=== PATIENT | female | born 1940 | race Caucasian/White ===

== ENCOUNTER 2024-06-30 12:30 | Outpatient (RCR) | payer MEDICARE, SELFPAY ==
--- NOTE | 2024-05-05 14:14 | OPREHPOC ---
Outpatient Therapy Plan of Care This is a Multidisciplinary Plan of Care that may contain components documented by all disciplines (PT, OT, and ST.) PT Problem 1 PT Problem #1 Knowledge Deficit PT Goal 1 Goal / Goal Update 1. Patient will perform independent HEP Target Visit 4 PT Problem 2 PT Problem #2 Pain PT Goal 1 Goal / Goal Update 1. Decrease pain to 4/10 highest with all activities Target Visit 10 PT Problem 3 PT Problem #3 Impaired Range of Motion PT Goal 1 Goal / Goal Update 1. Right flexion to 125 degrees to allow for stairs 2. Right extension to 0 to normalize gait pattern Target Visit 10 PT Problem 4 PT Problem #4 Impaired Functional ADLs PT Goal 1 Goal / Goal Update 1. Patient able to do normal cooking activities 2. Patient able to navigate 1 flight of stairs reciprocally 3. Patient able to ambulate household distances without cane Target Visit 10 PT Problem 5 PT Problem #5 Impaired Gait PT Goal 1 Goal / Goal Update 1. Patient will ambulate at least 250 feet on the 2 minute walk test without device or pain Target Visit 10
--- NOTE | 2024-05-05 14:15 | PTOPEVAL1 ---
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 She had home health until last week and has been discharged. Highest pain recently 7-8/10 and lowest 3/10. Is using a cane during the day and a walker if she wakes up at night. No assistive device prior to surgery. Pt has stairs to the basement which she does not have to do currently, 2 to get in the house with a handrail. Pt has not been cleared to drive. Pt has been able to dress and bathe independently, has not yet tried to cook but she was able to do that prior. Has not tried any gardening due to feeling unstable. Returns to MD next week. Patient goal: do anything I want to do Reported Pain Level Pain Score 3: Self Report Assessment PT Clinical Summary The patient is presenting to skilled therapy s/p R TKA on 04/11/24. She presents with decreased range of motion and strength, as well as gait and balance impairments which are contributing to her current cane use and pain and difficulty with typical activities at home. She will highly benefit from therapy to address impairments in order to safely return to prior level of function. Plan of Care Interventions Electrical Stimulation,Gait Training,Hot Pack/Cold Pack,Manual Therapy,Neuro Re-education,Patient/ Caregiver Education,Therapeutic Activities, Therapeutic Exercise PT Services Indicated Yes Treatment Frequency and 2-3 times a week for 10 visits Duration These treatments will address the objective and functional deficits as defined above. The patient will be advanced safely and appropriately in order for the patient to progress towards his/her prior level of function. Additional exercises will be introduced and as well as a comprehensive home exercise program upon discharge, if needed, ?to ensure carryover of functional gains achieved in the clinic. This treatment plan has been reviewed and agreement upon by the patient.
--- NOTE | 2024-06-01 17:44 | OPREHPOC ---
Outpatient Therapy Plan of Care This is a Multidisciplinary Plan of Care that may contain components documented by all disciplines (PT, OT, and ST.) PT Problem 1 PT Problem #1 Knowledge Deficit PT Goal 1 Goal / Goal Update 1. Patient will perform independent HEP Target Visit 4 Progress Met PT Problem 2 PT Problem #2 Pain PT Goal 1 Goal / Goal Update 1. Decrease pain to 4/10 highest with all activities Target Visit 10 Progress Met PT Problem 3 PT Problem #3 Impaired Range of Motion PT Goal 1 Goal / Goal Update 1. Right flexion to 125 degrees to allow for stairs 2. Right extension to 0 to normalize gait pattern Achieved ROM passively but pain elicited at 115 on Target Visit 10 Progress Partially Met PT Problem 4 PT Problem #4 Impaired Functional ADLs PT Goal 1 Goal / Goal Update 1. Patient able to do normal cooking activities 2. Patient able to navigate 1 flight of stairs reciprocally 3. Patient able to ambulate household distances without cane Continues to be dependent on cane and struggling with cane reciprocation Target Visit 18 Progress Partially Met PT Goal 2 Goal / Goal Update Improve jessica hip abduction strength to 4+/5 to improve gait and functional stabilization of pelvis and core Target Visit 18 PT Problem 5 PT Problem #5 Impaired Gait PT Goal 1 Goal / Goal Update 1. Patient will ambulate at least 250 feet on the 2 minute walk test without device or pain Target Visit 18 Progress Not Met
--- NOTE | 2024-06-01 17:44 | PTOPPROG ---
Assessment and note entered by Peter Staley, PT Evaluation Information Assessment Status Progress Diagnosis z96.651 ICD-10 Condition Codes (PT) M25.561,Z47.1 Subjective Information Reports that she was independent prior to surgery and wants to get back to that again. Overall she feels she has made a lot of progress but still is dependent on cane and is using it even in the house. She would like to be able to ride a stationary bike. Continues to have soreness when working into deep functional flexion and feels unsteady without use of a cane and at times even with it. Was instructed by MD that he would like her to continue therapy. Assessment PT Clinical Summary Patient has made progress with knee ROM and strength. She has achieved 125 degrees of knee flexion but has discomfort working into this range . She continues to be heavily dependent on use of cane and demonstrates Trendelenburg gait pattern with trunk leaning bilaterally. Weakness is noted in jessica hips contributing to gait and balance deficits. Will continue to benefit from skilled therapy to address stabilization deficits, continue knee flexion ability and comfort, and improve gait cycle. Plan of Care Interventions Electrical Stimulation,Gait Training,Hot Pack/Cold Pack,Manual Therapy,Neuro Re-education,Patient/ Caregiver Education,Therapeutic Activities, Therapeutic Exercise PT Services Indicated Yes Treatment Frequency and 2x/week for 8 visits Duration These treatments will address the objective and functional deficits as defined above. The patient will be advanced safely and appropriately in order for the patient to progress towards his/her prior level of function. Additional exercises will be introduced and as well as a comprehensive home exercise program upon discharge, if needed, ?to ensure carryover of functional gains achieved in the clinic. This treatment plan has been reviewed and agreement upon by the patient.
--- NOTE | 2024-06-30 13:22 | PTOPDC ---
Assessment and note entered by Anna Simon, PT Discharge Report Assessment Status Discharge Diagnosis z96.651 ICD-10 Condition Codes (PT) Pain in right knee M25.561,Aftercare following joint replacement surgery Z47.1 Subjective Information knee is better; been doing more activity- walking and go out more; use cane when doing more walking or knee is more sore; Reported Pain Level Pain Score Self Report Additional Pain Score Comments pain range in the past week 0-2/10; sore and tight in knee increase pain; walking more decreased pain: rest, tylenol PRN no longer taking pain pill at night for sleeping, past 5 nights without it problems with sleeping on her side- can only tolerate about 10-15 minutes; education on use of pillow between knees and ankles for support; Assessment PT Clinical Summary Marta has received a total of 18 PT sessions. Compared to the last progress report: pain range now of 0-2/10; LE functional scale self rating from 60 to 14% limitation in activity level; 2 minute walking test distance from 315 to 450'; is ambulating without assistive device and good gait pattern; reports using the cane PRN for distances; on stairs, use of alternating step pattern: ascending without hand rail and descending with 1 hand railing; ROM of R knee: active in sitting 0-125', with stretch to 130' and pain increase to 2/10. Education completed for HEP. The goals were achieved. Discharge PT services. She is to continue with her HEP and increase activity as tolerated. Plan of Care PT Services Indicated No
== END 2024-06-30 13:58 | disposition home or self-care (01) ==
LOC: ANHPT 12:30
DX: Z47.1 Aftercare following joint replacement surgery (principal); Z96.651 Presence of right artificial knee joint
CPT/HCPCS: 97016; 97110; 97116; 97140; 97161; 97530

== ENCOUNTER 2025-05-04 13:30 | Outpatient (RCR) | payer MEDICARE, SELFPAY ==
--- NOTE | 2025-03-15 14:58 | PTOPEVAL1 ---
Assessment and note entered by Kim Hinson, PT Evaluation Information Assessment Status Evaluation Diagnosis M17.12 ICD-10 Condition Codes (PT) Pain in left knee M25.562 Onset chronic arthritis Subjective Information L knee pain that was slightly relieved by steroid injection which lasted only a month. Pt is also very concerned about her balance, L knee only hurts when she makes certain movements henry standing up from prolonged sitting. Feels like the bone is out of place. Also hurt when bending down Reported Pain Level Pain Score 5: Self Report Assessment PT Clinical Summary Pt presents to therapy with c/o pain to L knee, reports had R TKR in the previous year. Pt demos antalgic gait pattern, muscle weakness and compensatory patterns for hamstrings, glute med and hip flexor tightness which impact ADLs, noted 60% disability on LEFS, balance deficits, postural and gait impairments with 40/56 on the FRANKLIN BALANCE TEST. She reports that previous x-rays revealed bone on bone on B knees L > R and may need TKR, wants to participate in pre-op therapy to improve balance and stability to reduce risk for falls and improve flexibility for better outcome post surgery. Plan of Care Interventions Check Out for Orthotic/Prosthetic,Electrical Stimulation,Gait Training,Hot Pack/Cold Pack,Neuro Re-education,Patient/Caregiver Education, Therapeutic Activities,Therapeutic Exercise, Ultrasound PT Services Indicated Yes Treatment Frequency and 2x/wk x 10 visits Duration These treatments will address the objective and functional deficits as defined above. The patient will be advanced safely and appropriately in order for the patient to progress towards his/her prior level of function. Additional exercises will be introduced and as well as a comprehensive home exercise program upon discharge, if needed, ?to ensure carryover of functional gains achieved in the clinic. This treatment plan has been reviewed and agreement upon by the patient.
--- NOTE | 2025-03-15 14:58 | OPREHPOC ---
Outpatient Therapy Plan of Care This is a Multidisciplinary Plan of Care that may contain components documented by all disciplines (PT, OT, and ST.) PT Problem 1 PT Problem #1 Knowledge Deficit PT Goal 1 Goal / Goal Update Pt. will demo good understanding of diagnosis and prognosis, HEPs. Target Visit 8 PT Problem 2 PT Problem #2 Pain PT Goal 1 Goal / Goal Update Pt will report 1-2/10 level of pain at worst and when walking longer distances. Target Visit 10 PT Problem 3 PT Problem #3 Impaired Balance PT Goal 1 Goal / Goal Update Pt will demo a score of 45/56 or more on FRANKLIN BALANCE TEST to reduce risk for falls. Pt will demo single leg standing for 10 seconds each LE with minimal postural sway indicating improved stability. Target Visit 8 PT Problem 4 PT Problem #4 Impaired Strength PT Goal 1 Goal / Goal Update Pt will perform 5xSTS within 15 seconds or less with minimal BUE support indicating improved strength and balance. Pt will demo 4/5 or more muscle strength to all tested muscles of BLE hip and knee Target Visit 10
--- NOTE | 2025-03-29 13:39 | PCPTNOTE ---
Pt no call, no Showed her appointment today
--- NOTE | 2025-04-20 14:13 | PCPTNOTE ---
Cancelled d/t schedule conflict per front office. AKS
--- NOTE | 2025-05-04 14:15 | OPREHPOC ---
Outpatient Therapy Plan of Care This is a Multidisciplinary Plan of Care that may contain components documented by all disciplines (PT, OT, and ST.) PT Problem 1 PT Problem #1 Knowledge Deficit PT Goal 1 Goal / Goal Update Pt. will demo good understanding of diagnosis and prognosis, HEPs. 05-04-25 d/c goal met Target Visit 8 Progress Met PT Problem 2 PT Problem #2 Pain PT Goal 1 Goal / Goal Update Pt will report 1-2/10 level of pain at worst and when walking longer distances. 05-04-25 d/c goal not met; 5/10 at worst Target Visit 10 Progress Not Met PT Problem 3 PT Problem #3 Impaired Balance PT Goal 1 Goal / Goal Update Pt will demo a score of 45/56 or more on FRANKLIN BALANCE TEST to reduce risk for falls. Pt will demo single leg standing for 10 seconds each LE with minimal postural sway indicating improved stability. 05-04-25 d/c goals met Target Visit 8 Progress Met PT Problem 4 PT Problem #4 Impaired Strength PT Goal 1 Goal / Goal Update Pt will perform 5xSTS within 15 seconds or less with minimal BUE support indicating improved strength and balance. Pt will demo 4/5 or more muscle strength to all tested muscles of BLE hip and knee 05-04-25 d/c goal 2 met; #1 is 19 seconds Target Visit 10 Progress Partially Met
--- NOTE | 2025-05-04 14:15 | PTOPDC ---
Assessment and note entered by Anna iSmon, PT Assessment Status Discharge Diagnosis M17.12 ICD-10 Condition Codes (PT) Pain in left knee M25.562 Onset chronic arthritis Subjective Information leg is stronger; the cortisone shot and exercises have helped the knee pain; have TKR scheduled for July; have been doing the exercises and will continue to do them until surgery; agree to discharge therapy. Reported Pain Level Pain Score Self Report Additional Pain Score Comments pain range range in the past week 0-5/10; pain increase after sitting 20 minutes and then go to stand up; ease pain with sitting, resting, meloxicam; better since the knee injection. Assessment PT Clinical Summary Erin has received 9 PT sessions. She has improved in all areas and with today's assessment: pain rating from 0-5/10; self assessment with LE functional scale rating of 33% limitation in activity level; L knee active ROM in sitting to 0-120'; hamstring length with supine SLR to 70'; Yu balance score of 55/56; 2 minute walking test distance of 500'; 5 reps sit/ stand time of 19 seconds, without use of UE's; education for HEP completed. The goals were achieved, except pain rating at worst. Discharge PT. She is to continue with her HEP and monitor knee pain with increased activity. Plan of Care PT Services Indicated No
== END 2025-05-04 16:38 | disposition home or self-care (01) ==
LOC: ANHPT 13:30
DX: M17.12 Unilateral primary osteoarthritis, left knee (principal)
CPT/HCPCS: 97110; 97112; 97116; 97161; 97530